=== PATIENT | female | born 1975 | race African-American/Black ===

== ENCOUNTER → 2020-07-18 | Day surgery (SDC) | payer OTHER | END | disposition home or self-care (01) | LOC: FRADUS-SUR 12:14 | PROVIDERS: ATTEND Surgery Surgical Oncology | PROC: 0HBU3ZX Excision of Left Breast, Percutaneous Approach, Diagnostic (ICD-10-PCS; principal; 2020-07-18) | PROC: 07B63ZX Excision of Left Axillary Lymphatic, Percutaneous Approach, Diagnostic (ICD-10-PCS; 2020-07-18) | PROC: BH41ZZZ Ultrasonography of Left Breast (ICD-10-PCS; 2020-07-18) | DX: C50.212 Malignant neoplasm of upper-inner quadrant of left female breast (principal); Z17.1 Estrogen receptor negative status [ER-]; R59.9 Enlarged lymph nodes, unspecified; N63.22 Unspecified lump in the left breast, upper inner quadrant | CPT/HCPCS: 19083; 76942-TC; 87899; 88305-TC; 88342-TC; A4648 ==